=== PATIENT | male | born 2000 | race Caucasian/White ===

== ENCOUNTER 2020-12-25 17:03 | Emergency (ER) | payer OTHER ==
[2020-12-25 17:44] LABS: HEMOGLOBIN 14.9 gm/dl (14.0-17.5); WHITE BLOOD COUNT 8.1 K/UL (4.5-11.0)
[2020-12-25 17:56] LABS: BUN/CREATININE RATIO 20 (0-10)
[2020-12-25] MEDS ORDERED: VIBRAMYCIN100 MG PO (20:07)
[2020-12-25] MEDS ORDERED: TORADOL 10 MG T10 MG PO (20:14)
[2020-12-28 17:13] LABS: CHLAMYDIA TRACHOMATIS, NAA Positive (Negative); NEISSERIA GONORRHOEAE, NAA Negative (Negative)
== END 2020-12-25 21:00 | disposition home or self-care (01) ==
LOC: ER1 17:03
PROVIDERS: Physician Assistant
DX: N39.0 Urinary tract infection, site not specified (principal); F17.290 Nicotine dependence, other tobacco product, uncomplicated; Z88.6 Allergy status to analgesic agent; Z87.442 Personal history of urinary calculi
CPT/HCPCS: 80053; 81001; 85025; 87086; 96372; 99284; J0696